=== PATIENT | female | born 1980 | race African-American/Black ===

== ENCOUNTER 2016-08-04 22:29 | Emergency (ER) | payer OTHER ==
[~2016-08-04] VITALS: Ht 160 cm; Wt 145.0 kg
[~2016-08-04 22:29] MED LIST: BACTRIM,SEPT1 TABLET PO; ENDOCET 5-3251 EACH PO; PERCOCET 5/31 TABLET PO; PROMETHAZINE HC25 M1 PO
[2016-08-05 00:24] LABS: EOSINOPHIL (%) 1.9 % (0-5); EOSINOPHIL COUNT 0.1 K/uL (0-0.3); HEMATOCRIT 38.7 % (36.0-46.0); IMMATURE GRANULOCYTE (%) 0.1 % (0.0-0.7); IMMATURE GRANULOCYTE COUNT 0.1 K/uL; LYMPHOCYTE COUNT 2.9 K/uL (1.0-2.8); MCH 25.5 PG (29.0-34.0); MCV 79.6 FL (83-99); MEAN PLAT.VOLUME 10.8 uM^3 (9.5-12.4); MONOCYTE (%) 5.7 % (3-12); MONOCYTE COUNT 0.4 K/uL (0-0.8); NEUTROPHIL COUNT 3.7 K/uL (1.8-6.4); PLATELET COUNT 413 K/uL (156-360); RBC DIS.WIDTH-CV 15.5 % (11.8-14.6); RED BLOOD COUNT 4.86 M/uL (3.80-5.20); WHITE BLOOD COUNT 7.2 K/uL (4.1-10.2)
[2016-08-05 00:36] LABS: CHLORIDE 103 mEq/L (99-109); POTASSIUM 4.3 mEq/L (3.7-5.4); SODIUM 138 mEq/L (136-147)
[2016-08-05 00:37] LABS: GLUCOSE 98 mg/dL (70-99)
[2016-08-05 00:39] LABS: ANION GAP 14 MEQ/L (2-14)
[2016-08-05 00:41] LABS: GFR ESTIMATE (CALCULATED) > 59 mL/min/
[2016-08-05 00:42] LABS: UREA NITROGEN (BUN) 8 mg/dL (9-23)
[2016-08-05 00:49] LABS: QUANTITATIVE HCG < 4.0 MIU/ML
[2016-08-05 01:36] LABS: INFLUENZA A VIRAL ANTIGEN NEGATIVE; INFLUENZA B VIRAL ANTIGEN NEGATIVE
[2016-08-05] MEDS ORDERED: MOTRIN800 MG PO (02:32)
[2016-08-05] MEDS ORDERED: FLEXERIL10 MG PO (02:32)
[2016-08-05 02:52] VITALS: BP 112/80
== END 2016-08-05 02:45 | disposition home or self-care (01) ==
LOC: EME 22:29
PROVIDERS: Emergency Medicine
DX: J02.9 Acute pharyngitis, unspecified (principal); M62.838 Other muscle spasm; M54.2 Cervicalgia; H92.01 Otalgia, right ear; R11.0 Nausea
CPT/HCPCS: 70491; 80048; 84702; 85025; 87502; 87651 90; 99281; 99285; J2270; J2405; J7030

== ENCOUNTER 2016-08-09 12:42 | Emergency (ER) | payer OTHER ==
[~2016-08-09] VITALS: Ht 160 cm; Wt 148.2 kg
[~2016-08-09 12:42] MED LIST changes: +FLEXERIL10 MG PO; +MOTRIN800 MG PO
[2016-08-09 14:16] LABS: HEMATOCRIT 34.4 % (36.0-46.0); MCH 25.7 PG (29.0-34.0); MCHC 32.3 G/DL (30.0-36.0); MCV 79.6 FL (83-99); MEAN PLAT.VOLUME 9.6 uM^3 (9.5-12.4); PLATELET COUNT 330 K/uL (156-360); RBC DIS.WIDTH-CV 15.2 % (11.8-14.6); RED BLOOD COUNT 4.32 M/uL (3.80-5.20)
[2016-08-09 14:26] LABS: CHLORIDE 106 mEq/L (99-109); POTASSIUM 4.3 mEq/L (3.7-5.4); SODIUM 138 mEq/L (136-147)
[2016-08-09 14:27] LABS: GLUCOSE 84 mg/dL (70-99)
[2016-08-09 14:29] LABS: ANION GAP 9 MEQ/L (2-14)
[2016-08-09 14:31] LABS: GFR ESTIMATE (CALCULATED) > 59 mL/min/
[2016-08-09 14:32] LABS: UREA NITROGEN (BUN) 9 mg/dL (9-23)
[2016-08-09 14:42] LABS: INTERNAL CONTROL VALID? YES; MONOSPOT (MONONUCLEOSIS SEROL) NEGATIVE
[2016-08-09] MEDS ORDERED: ULTRAM50 MG PO (16:56)
[2016-08-09 17:25] VITALS: BP 141/89
== END 2016-08-09 17:28 | disposition home or self-care (01) ==
LOC: EME 12:42
PROVIDERS: Nurse Practitioner Family
DX: R59.0 Localized enlarged lymph nodes (principal)
CPT/HCPCS: 70491; 80048; 85027; 86308; 86735 90; 99281; 99284; J1885